=== PATIENT | male | born 1960 | race Hispanic/Latino ===

== ENCOUNTER 2017-08-11 06:20 | Day surgery (SDC) | payer OTHER ==
[2017-08-11] MEDS ORDERED: NACL 0.9% 1000 ML 1,000 ML IV SCH (07:00)
--- NOTE | 2017-08-11 07:24 | Anesthesia Consultation ---
Anesthesia Consult and Med Hx - Airway Anesthetic Teeth Evaluation: Good ROM Head & Neck: Adequate Mental/Hyoid Distance: Adequate Mallampati Class: Class II Intubation Access Assessment: Possibly Difficult - Pulmonary Exam CTA: Yes - Cardiac Exam Cardiac Exam: RRR - Pre-Operative Health Status ASA Pre-Surgery Classification: ASA3 Proposed Anesthetic Plan: MAC - Pre-Anesthesia Comment Pre-Anesthesia Comments: patient has had radiation for tongue cancer. - Gastrointestinal Hx Gastroesophageal Reflux Disease: Yes (Gastric bypass) - Other Systems Hx Cancer: Yes (tonguE WITH RADITION AND SURGERY)
[2017-08-11] MEDS ORDERED: DIPRIVAN 10 MG/ML IV ONE ×2 (07:33)
--- NOTE | 2017-08-11 08:17 | Short Stay Summary ---
Short Stay Documentation - Allergies and Medications Current Medications: Allergies No Known Allergies Allergy (Verified 08/11/17 06:49) Home Medications Medication Instructions Recorded Confirmed Last Taken Type Adult Low Dose Aspirin EC 81 mg PO DAILY 08/11/17 08/11/17 08/06/17 History Clopidogrel 75 mg PO DAILY 08/11/17 08/11/17 08/06/17 History Fenofibrate 1 tab PO DAILY 08/11/17 08/11/17 08/10/17 History Metoprolol 1 tab PO BID 08/11/17 08/11/17 08/10/17 History Simvastatin [Zocor TAB] 40 mg PO DAILY 08/11/17 08/11/17 08/10/17 History Active Medications Sodium Chloride (Nacl 0.9% 1000 Ml) 1,000 mls @ 50 mls/hr IV DIRECT NOMI Last Admin: 08/11/17 07:26 Dose: 50 mls/hr - Brief post op/procedure progress note Date of procedure: 08/11/17 Pre-op diagnosis: Colon cancer screening Post-op diagnosis: same (1. Internal hemorrhoids 2. Poor prep) Procedure: Colonoscopy Anesthesia: MAC Findings: as above Surgeon: MANE ENRIQUEZ Estimated blood loss: none Pathology: none Condition: stable - Disposition Condition at discharge: Stable Disposition: DC-01 TO HOME OR SELFCARE Short Stay Discharge Plan Activity: no restrictions Weight Bearing Status: Full Weight Bearing Diet: regular, low salt Follow up with: SHAYY HOUGH MD, PHD [Primary Care Provider] - 7 Days
[2017-08-11 09:11] VITALS: BP 128/79
--- NOTE | 2017-08-11 13:30 | Post Anesthesia Evaluation ---
- Post Anesthesia Evaluation Patient Participated: Yes Airway Patent: Yes Stable Respiratory Function: Yes Nausea/Vomiting: No Temp > 96.8F: Yes Pain Manageable: Yes Adequeate Hydration: Yes Anesthesia Complications: No
--- NOTE | 2017-08-11 13:30 | Anesthesia Day of Surgery ---
Anesthesia Day of Surgery - Day of Surgery Patient Examined: Yes Patient H&P Reviewed: Yes Patient is NPO: Yes
== END 2017-08-11 06:21 | disposition home or self-care (01) ==
LOC: GIO 06:20
PROVIDERS: ATTEND Internal Medicine Gastroenterology
DX: Z12.11 Encounter for screening for malignant neoplasm of colon (principal); K64.0 First degree hemorrhoids; K21.9 Gastro-esophageal reflux disease without esophagitis; Z98.84 Bariatric surgery status; Z85.810 Personal history of malignant neoplasm of tongue; Z92.3 Personal history of irradiation; Z98.890 Other specified postprocedural states
CPT/HCPCS: 45378; J2704; J7030